=== PATIENT | male | born 1960 | race Caucasian/White ===

== ENCOUNTER 2025-01-22 08:30 | Outpatient (REF) | payer OTHER, SELFPAY ==
--- OUTSIDE RECORDS SUMMARY | 2025-01-22 09:55 | XMS_ITS ---
Author Name [facility] Organization Unknown Care Team Organization Name Specialty Phone Email Start Date End Da te [facility] Maryjane Fragoso Primary Care 02/13/202211/06
[2025-01-22 13:35] LABS: MANUAL DIFF FLAG NO
[2025-01-22 13:47] LABS: Hematocrit 45.5 % (42.0-52.0); Hemoglobin 15.0 g/dl (14.0-18.0); Imm Gran Abs Auto 0.05 X10*3/uL (0.00-0.03); Imm Gran Pct Auto 0.5 % (0.0-0.4); Lymphocytes Absolute Auto 1.5 X10*3/uL (1.2-4.9); Mean Corpuscular HGB Conc 33.0 g/dl (31.0-36.0); Mean Corpuscular Hemoglobin 29.1 pg (27.0-33.0); Mean Corpuscular Volume 88.2 fL (80.0-98.0); NRBC Abs Auto 0.000 X10*3/uL (0.0-0.012); NRBC Pct Auto 0.0 /100WBC (0.0-0.2); Platelet Count 347 X10*3/uL (160-400); Red Blood Count 5.16 X10*6/uL (4.60-5.80); White Blood Count 10.9 X10*3/uL (4.8-10.8)
[2025-01-22 15:01] LABS: Folate 5.5 ng/mL (> or = 4.0); Vitamin B12 359 pg/mL (200-900)
[2025-01-22 16:17] LABS: Alanine Aminotransferase 36 U/L (0-40); Albumin Level 4.5 g/dL (3.5-5.0); Anion Gap 14 (12-20); Aspartate Amino Transferase 22 U/L (5-37); Blood Urea Nitrogen 14 mg/dL (9-16); Calcium 9.3 mg/dL (8.4-10.2); Carbon Dioxide 29 mmol/L (22-29); Chloride 105 mmol/L (96-108); Estimated Glomerular Filt Rate > 60; Potassium 4.4 mmol/L (3.3-5.1); Sodium 144 mmol/L (135-145); Total Protein 7.2 g/dL (6.5-8.0)
[2025-01-22 18:07] LABS: Alkaline Phosphatase 75 U/L (39-117)
[2025-01-28 14:43] LABS: Vitamin D 25-OH, D2 <4 ng/mL; Vitamin D 25-OH, D3 28 ng/mL; Vitamin D 25-OH, Total 28 ng/mL (30-100)
== END 2025-01-22 08:31 | disposition home or self-care (01) ==
LOC: HO.HKASLDS 08:30
PROVIDERS: PCP Internal Medicine; Visit Provider Psychiatry & Neurology Neurology
DX: G25.2 Other specified forms of tremor (principal); M54.2 Cervicalgia; G47.10 Hypersomnia, unspecified; R26.9 Unspecified abnormalities of gait and mobility; R06.83 Snoring; Z13.21 Encounter for screening for nutritional disorder
CPT/HCPCS: 36415; 80053; 82306; 82607; 82746; 84443; 85025; 85652

== ENCOUNTER 2025-01-22 08:30 | Outpatient (AMB) | payer OTHER, SELFPAY ==
--- NOTE | 2025-01-22 08:33 | MHC.OFFVIS ---
Vital Signs 01/22/25 08:36 Height 5 ft 11 in Weight 226 lb 8 oz BMI 31.6 BP 130/82 Blood Pressure Location Rt brachial Position Sitting Pulse 90 Pulse Source Pulse Oximeter Pulse Oximetry (%) 96 Oxygen Delivery Method Room Air Intake Visit Reasons: 09/29LVM+LET ENP - Gait Instability Intake Note: Gait instability ? MS Sister recent diagnosed Apprentice Photographer Required: No Accompanied by: Self / Same As Patient Allergies No Known Allergies Allergy (Verified 01/22/25 08:34) Medication List - Last Reconciled 01/22/25 by Kristin Corbett MD amlodipine 10 mg PO DAILY citalopram 20 mg PO DAILY hydrochlorothiazide 25 mg PO DAILY pravastatin 80 mg PO DAILY HPI Comments Details: 64y/o Right handed male comes for evaluation of tremors and gait instability, falls. His tremors are in his UE and LE - R>L mostly at rest and intermittent. he started noticing it 2 years ago and has worsened since then. he also feels he has problem with fine motor coordination.He also seems slower No change in voice He does not write so unsure of change in handwriting He has some night time drooling He has difficulty using chopsticks which he used to be good He has trouble with dressing - especially pants- worried he will fall.He has constipation. No family h/o parkinsons. No known head injury / No exposure to toxins or heavy metals or antipsychotics.He denies excessive alcohol He reports some word retrieval difficulty Gait- he started noticing frequent stumbling for 2 years with some frequent near falls. he feels like he does not lift his foot up He denies neck pain or back pain No surgeries in the spine No numbness or tingling He has some urinary urgency He snores loudly and has nocturia , frequent arousals and excessive daytime sleepiness. [facility] Medical History Gait instability Abnormal colonoscopy Hyperlipidemia Essential hypertension Depressive disorder Closed displaced fracture of fifth metatarsal bone of right foot Anxiety state Family History Father Prostate cancer Heart attack Diabetes Mother Heart attack Brother Testicular cancer Sister Multiple sclerosis Physical Exam Vital Signs: Last Vital Signs Pulse 90 01/22/25 08:36 BP 130/82 01/22/25 08:36 Pulse Ox 96 01/22/25 08:36 Oxygen Delivery Method Room Air 01/22/25 08:36 BMI result Body Mass Index 31.6 Const General: cooperative, healthy appearing, comfortable and no acute distress Nutritional Appearance: obese Orientation/consciousness: patient oriented x3 Neuro Other: No tremors Normal blink and facial expression Normal tone FFM and foot taps - normal Voice hoarse Patient was hard of hearing General: patient oriented x3, tone normal, moves all extremities and no focal motor deficits Cranial nerves: Yes Facial sensation intact/muscles of mastication intact, Yes Bilaterally intact EOM present, Yes Nystagmus not present, Yes Normal facial strength present, Yes Midline tongue present and Yes Ability to bilaterally elevate shoulders present Cognition (Neuro): normal cognition Gait exam (Neuro): Antalgic gait present Motor exam (neuro): 5/5 motor strength present throughout and Normal motor muscle tone present throughout Deep tendon reflexes (DTR's): Right triceps reflex intensity grade: 1+, Left triceps reflex intensity grade: 1+, Rt Biceps (C5, C6): 1+, Left biceps reflex intensity grade: 1+, Right brachioradialis reflex intensity grade: 1+, Left brachioradialis reflex intensity grade: 1+, Right patellar reflex intensity grade: 1+ and Left patellar reflex intensity grade: 1+ Coordination: [id number] test normal Assessment & Plan Assessment & Plan (1) Coarse tremors: Comment: ? physiological Code(s): G25.2 - Other specified forms of tremor Category: Medical (2) Gait disorder: Comment: Musculoskeletal Code(s): R26.9 - Unspecified abnormalities of gait and mobility Category: Medical (3) Snoring: Code(s): R06.83 - Snoring Category: Medical (4) Hypersomnia: Code(s): G47.10 - Hypersomnia, unspecified Category: Medical Plan No evidence of Parkinson's on todays visit I will evaluate him with MRI brain , C spine XR to r/o spondylosis, labs - Vit B 12 TSH CBC CMP Home sleep test to r/o sleep apnea. Orders: Orders Vitamin B12 and Folate Today G25.2 - Other specified forms of tremor, R26.9 - Unspecified abnormalities of gait and mobility Complete Blood Count Auto Diff Today G25.2 - Other specified forms of tremor, R26.9 - Unspecified abnormalities of gait and mobility Vitamin D 25-OH (D2 and D3) Today G25.2 - Other specified forms of tremor, R26.9 - Unspecified abnormalities of gait and mobility TSH reflex Free T4 Today G25.2 - Other specified forms of tremor, R26.9 - Unspecified abnormalities of gait and mobility MR head/brain wo con Today G25.2 - Other specified forms of tremor, R26.9 - Unspecified abnormalities of gait and mobility Comprehensive Met. Panel Today G25.2 - Other specified forms of tremor, R26.9 - Unspecified abnormalities of gait and mobility Erythrocyte Sedimentation Rate Today G25.2 - Other specified forms of tremor, R26.9 - Unspecified abnormalities of gait and mobility PT Evaluation and Treatment Today R26.9 - Unspecified abnormalities of gait and mobility XR cervical spine 3V Today M54.2 - Cervicalgia RT home sleep study Today G47.10 - Hypersomnia, unspecified, R06.83 - Snoring, R35.1 - Nocturia Coding Level of Care Code New Pt Level 4 (26956) Complex EM visit Add On G2211 Diagnoses Coarse tremors G25.2 Gait disorder R26.9 Snoring R06.83 Hypersomnia G47.10
[2025-01-22 08:36] VITALS: BP 130/82; PULSE 90; O2SAT 96; BMI 31.6
--- OUTSIDE RECORDS SUMMARY | 2025-01-22 08:51 | XMS_ITS | Clinical Summary ---
Author Organization [place] [address] [facility] Building Address [address] [place] [phone] Phone Care Team Providers Care Warehouse Trainer Name Role Phone Nick Vicente MD Primary Care Provider [phone] Allergies No known active allergies Medications pravastatin (PRAVACHOL) 80 mg tablet Take 1 tablet (80 mg total) by mouth 1 (one) time each day. 90 tablet 1 09/29/2024 Active hydroCHLOROthiaz jordan (HYDRODIURIL) 25 mg tablet Take 1 tablet (25 mg total) by mouth 1 (one) time each day. 90 tablet 1 09/29/2024 Active citalopram (CeleXA) 20 mg tablet Take 1 tablet (20 mg total) by mouth 1 (one) time each day. 90 tablet 1 09/29/2024 Active buPROPion XL (WELLBUTRIN XL) 300 mg 24 hr tablet Take 1 tablet (300 mg total) by mouth 1 (one) time each day in the morning. 90 tablet 1 09/29/2024 Active amLODIPine (NORVASC) 10 mg tablet Take 1 tablet (10 mg total) by mouth 1 (one) time each day. 90 tablet 1 09/29/2024 Active Active Problems Problem Noted Date Diagnosed Date Prediabetes 01/22/2017 Essential hypertension 01/11/2015 Depression 03/31/2009 Hearing loss 06/11/2007 Hyperlipidemia 09/13/2005 Obesity 09/13/2005 Immunizations Immunization Administration Dates Next Due Hepatitis A Adult (Havrix; V aqta) 19yo and older 01/30/2007,07/19/2006 Influenza Quadravalent, MDCK , 0.5ml, preservative free (Flucelvax) 6mo and older 04/26/2021 Influenza Quadravalent, MDCK , 0.5ml, with preservative (Flucelvax) 6mo and older 03/19/2018,01/21/2017 Influenza trivalent, 0.5mL, preservative free (Fluarix; FluLaval; Fluzone) ages 6mo and older (Afluria) 3 years and older 02/09/2022,01/11/2015,01/27/2010,01/01,01/30/2007 Meningococcal MCV4P 07/17/2006 PPD Test 07/17/2006 [employer] SARS-CoV-2 COVID-19, mRNA, LNP-S, preservative free 07/11/2021 Td Tetanus diptheria (Tdvax) 7yo and older 09/13/2005 Tdap Tetanus diptheria acell ular pertussis (Boostrix; Adacel) 7yo and older 03/04/2019,09/19/2012 Zoster Live 02/09/2022,07/11/2021 Surgical History Surgery Date Site/Laterality Comments COLONOSCOPY 10/01/14 PROCEDURE: HISTORICAL COLONOSCOPY; COMMENT: Diverticulosis Medical History Medical History Date Comments Closed displaced fracture of fifth metatarsal bone of right foot 07/31/2017 DX:Closed displaced frac ture of fifth metatarsal bone of right foot Anxiety state DX:Anxiety state Depressive disorder DX:Depressiv e disorder Hyperlipidemia DX:Hyperlipidemi a Essential hypertension DX:Essent ial hypertension Family History Medical History Relation Name Comments Other cancer Brother testicular Diabetes Father Heart attack Father Prostate cancer Father Heart attack Mother Relation Name Status Comments Brother Father Mother Social History Tobacco Use Types Packs/Day Years Used Date Smoking Tobacco: Never Smokeless Tobacco: Never Tobacco Cessation:Counseling Given: Not Answered Alcohol Use Standard Drinks/Week Comments Yes 0 (1 standard drink = 0.6 oz pur e alcohol) Housing Instability Answer Date Recorde d Are you worried that in the next 2 months you may not have stable housing? No 09/28/2024 Food Access & Nutrition Answer Date Rec orded Do you have access to a vari ety of food including fruits and vegetables? Yes 09/28/2024 Access to Healthcare Answer Date Record ed Within the last 3 months, ho w many times did you visit the emergency department for your medical care? 0 09/28/2024 Health Literacy Answer Date Recorded How often do you need to hav e someone help you when you read instructions, pamphlets, or other written material from your doctor or pharmacy? Never 09/28/2024 Caregiver: How often do you need to have someone help you when you read instructions, pamphlets, or other written material from your doctor or pharmacy? Not on file 09/28/2024 Financial Risk Answer Date Recorded How hard is it for you to pa y for the very basics like food, housing, medical care, and air conditioning / heating? Not very hard 09/28/2024 Transportation Answer Date Recorded Has the lack of transportati on kept you from meetings, work, or from getting things needed for daily living? No Has the lack of transportati on kept you from medical appointments or from getting medications? No 09/28/2024 Social Isolation Answer Date Recorded How often do you feel lonely or isolated from those around you? Sometimes 09/28/2024 Food Risk Answer Date Recorded Within the past 12 months we worried whether our food would run out before we got money to buy more. Never true 09/28/2024 Within the past 12 months th e food we bought just didn't last and we didn't have money to get more. Never true 09/28/2024 Dependent Care Answer Date Recorded Do you need help finding or paying for care for your loved ones. For example, early childhood education specialist or elderly care for an older adult? No 09/28/2024 Education Answer Date Recorded Do you think completing more education or training, like finishing a GED, going to college, or learning a trade, would be helpful for you? No 09/28/2024 Employment and Income Answer Date Recor ded During the last four weeks, have you been actively looking for work? Yes 09/28/2024 Living Situation Answer Date Recorded What is your living situation? Unrecognized valu e 09/28/2024 Sex and Gender Information Value Date Recorded Sex Assigned at Male 08/12/2024 1:54 PM EDT Legal Sex Male 3:07 AM EST Gender Identity Male 08/12/2024 1:54 PM EDT Sexual Orientation Straight 08/12/2024 1: 54 PM EDT Obstetrics History Last Filed Vital Signs Vital Sign Reading Time Taken Comments Blood Pressure 130/72 09/29/2024 8:14 AM EDT Pulse 84 09/29/2024 8:14 AM EDT Temperature - - Respiratory Rate - - Oxygen Saturation - - Inhaled Oxygen Concentration - - Weight 99.8 kg (220 lb) 09/29/2024 8:14 AM EDT Height 180.3 cm (5' 11 ) 09/29/2024 8:14 AM EDT Body Mass Index 30.68 09/29/2024 8:14 AM EDT Plan of Treatment Health Maintenance Due Date Last Done Comments Colorectal Cancer Screening: Colonoscopy 1960 Pneumococcal Vaccine: 50+ Years (1 of 1 - PCV) 2010 HIV Screening 03/17/2022 Zoster Vaccines (2 of 3) 04/06/2022 02/09/2022, 04/0 08/2021 COVID-19 Vaccine ( season) 2024 07/11/2021, 01/28/2021, 07/26/2020, Additional history exists Influenza Vaccine (#1) 2024 , 04/26/2021, 01/15/2020, Additional history exists Social Influencers of Health Screening 09/28/2025 09/28/2024 Hypertension/CHF/CAD Annual BMP Blood Test 09/29/2025 09/29/2024, 10/09/2023 DTaP,Tdap,and Td Vaccines (4 - Td or Tdap) 03/04/2029 03/04/2019, 09/19/2012, 09/13/2005 Cholesterol Screening (Lipid Panel) 09/29/2029 09/29/2024, 10/09/2023, 10/09/2023 RSV Immunization Adult Patients (1 - 1-dose 75+ series) 10/26/2035 Hepatitis C Screening Completed 07/17/2006 Meningococcal ACWY Vaccine Aged Out 07/17/2006 N o longer eligible based on patient's age to complete this topic Hepatitis A Vaccines Aged Out 01/30/2007, 07/20/19 07 No longer eligible based on patient's age to complete this topic Depression Screening Completed 09/28/2024 HIB Vaccines Aged Out No longer eligi ble based on patient's age to complete this topic HPV Vaccines Aged Out No longer eligi ble based on patient's age to complete this topic Hepatitis B Vaccines Aged Out No long er eligible based on patient's age to complete this topic IPV Vaccines Aged Out No longer eligi ble based on patient's age to complete this topic MMR Vaccines Aged Out No longer eligi ble based on patient's age to complete this topic Meningococcal B Vaccine Aged Out No l onger eligible based on patient's age to complete this topic RSV Immunization Patients Under 20 months Aged Out No longer eligible based on patient's age to complete this topic Varicella Vaccines Aged Out No longer eligible based on patient's age to complete this topic Procedures Procedure Name Priority Date/Time Associated Diagnosis Comments BASIC METABOLIC PANEL Routine 09/29/2024 8:50 AM EDT Pure hypercholesterolemia Essential hypertension LIPID PANEL WITH REFLEX TO DIRECT LDL Routine 09/29/2024 8:50 AM EDT Pure hypercholesterolemia Essential hypertension HEPATITIS C SCREENING Routine 07/17/2006 from Last 3 Months or Most Recently Relevant to Health Maintenance Results * (ABNORMAL) Lipid panel with reflex to direct LDL (09/29/2024 8:50 AM EDT) Cholesterol 225(H) 0 - 200 mg/dL LAB CHEMISTRY METHOD 09/29/2024 12:22 PM EDT [facility] Triglycerides 107 0 - 150 mg/dL LAB CHEMISTRY METHOD 09/29/2024 12:22 PM EDT [facility] HDL 57 >=40 mg/dL LAB CHEMISTRY METHOD 09/29/2024 12:22 PM EDT [facility] LDL Calculated 147(H) 0 - 100 mg/dL LAB CHEMISTRY METHOD 09/29/2024 12:22 PM EDT [facility] VLDL Cholesterol Daniele 21.4 mg/dL LAB CHEMISTRY METHOD 09/29/2024 12:22 PM EDT [facility] Non HDL Chol. (LDL+VLDL) 168(H) <145 mg/dL LAB CHEMISTRY METHOD 09/29/2024 12:22 PM EDT [facility] Chol/HDL Ratio 3.9 0.0 - 4.4 LAB CHEMISTRY METHOD 09/29/2024 12:22 PM EDT [facility] Blood Venous blood specimen / Unknown Venipuncture / Unknown 09/29/2024 8:50 AM EDT 09/29/2024 8:50 AM EDT us Nick Vicente MD LAB BLOOD ORDERABLES Final Res ult [facility] [address] [place] [address], * (ABNORMAL) Basic metabolic panel (09/29/2024 8:50 AM EDT) Sodium 141 133 - 145 mmol/L LAB CHEMISTRY METHOD 09/29/2024 12:[address] [facility] Potassium 4.0 3.5 - 5.5 mmol/L LAB CHEMISTRY METHOD 09/29/2024 12:[address] [facility] Chloride 105 96 - 110 mmol/L LAB CHEMISTRY METHOD 09/29/2024 12:[address] [facility] CO2 31 21 - 32 mmol/L LAB CHEMISTRY METHOD 09/29/2024 12:[address] [facility] Anion Gap 5 3 - 11 LAB CHEMISTRY METHOD 09/29/2024 12:[address] [facility] Glucose 122(H) 70 - 100 mg/dL LAB CHEMISTRY METHOD 09/29/2024 12:[address] [facility] BUN 12 5 - 25 mg/dL LAB CHEMISTRY METHOD 09/29/2024 12:22 PM EDT [facility] Creatinine 0.77 0.70 - 1.30 mg/dL LAB CHEMISTRY METHOD 09/29/2024 12:22 PM EDT [facility] eGFR 101 >=60 mL/min/1. 73m2 LAB CHEMISTRY METHOD 09/29/2024 12:22 PM EDT [facility] Comment:Calculation based on the Chronic Kidney Disease Epidemiology Collaboration (CKD-EPI) equation refit without adjustment for race. BUN/Creatinine Ratio 15.6 LAB CHEMISTRY METHOD 09/29/2024 12:22 PM EDT [facility] Calcium 9.1 8.5 - 10.5 mg/dL LAB CHEMISTRY METHOD 09/29/2024 12:22 PM EDT [facility] Blood Venous blood specimen / Unknown Venipuncture / Unknown 09/29/2024 8:50 AM EDT 09/29/2024 8:50 AM EDT Nick Vicente MD LAB BLOOD ORDERABLES Final Res ult [facility] [address] [place] [address], * Hepatitis C Screening (07/17/2006) Hepatitis C Screening negative Historical Provider HEALTH MAINTENANCE Final Result from Last 3 Months or Most Recently Relevant to Health Maintenance Insurance [facility] [address] [place] [phone] Care Teams Warehouse Trainer Relationship Specialty Start Date End Date Nick Vicente MD [address] [place] [id number] PCP - General Internal Medicine 01/25/20
== END 2025-01-22 09:00 | disposition home or self-care (01) ==
LOC: HO.HSMS 08:31
PROVIDERS: PCP Internal Medicine; Visit Provider Psychiatry & Neurology Neurology
DX: G25.2 Other specified forms of tremor (principal); R26.9 Unspecified abnormalities of gait and mobility; R06.83 Snoring; G47.10 Hypersomnia, unspecified
CPT/HCPCS: 99204; G2211

== ENCOUNTER → 2025-03-22 07:31 | Outpatient (BNV) | payer OTHER, SELFPAY | PROVIDERS: PCP Internal Medicine; Visit Provider Radiology Diagnostic Radiology | DX: I67.82 Cerebral ischemia (principal); G31.9 Degenerative disease of nervous system, unspecified | CPT/HCPCS: 70551 ==

== ENCOUNTER 2025-03-22 07:32 | Outpatient (REF) | payer OTHER, SELFPAY ==
--- OUTSIDE RECORDS SUMMARY | 2025-03-18 23:59 | XMS_ITS | Continuity of Care Document ---
Author Organization [facility] Address [address] [place] [address] [address] [place] [address]- Care Team Providers Care Regrinder Operator Name Role Phone Jules GONZALES, Nick Mattson Primary Care Physician [phone] Encounter [facility] Date(s): 02/16/25 - 03/18/[address] [place] [address]- Attending Physician: Ronan Lopes Admitting Physician: Ronan Lopes Referring Physician: AdmtrRonan Encounter Type: Triage Allergies, Adverse Reactions, Alerts No Known Medication Allergies Medications acetaminophen 325 mg oral tablet 650 mg, By Mouth, Every 4 hours, PRN, Refills 0, Maintenance, Pain , Mild, 01/29/25 4:42:00 PM EDT,Partial fill upon patient request if the prescription is for a schedule II opioid drug. Start Date: 01/29/25 Status: Ordered Medication Dispense Status: Completed Total Allowed Fills: 1 Fills Dispensed: 0 amLODIPine 10 mg oral tablet 1 tablet = 10 mg, By Mouth, Daily, # 30 tablet, 0 Refills, Maintenance, 03/15/25 12:52:00 PM EST, Tablet, Partial fill upon patient request if the prescription is for a schedule II opioid drug. Start Date: 03/15/25 Status: Ordered Medication Dispense Status: Completed Quantity: 30.0 Unit: tablet Total Allowed Fills: 1 Fills Dispensed: 0 aspirin 81 mg oral delayed release tablet 81 mg, By Mouth, Daily, Refills 0, Maintenance, 01/25/25 3:42:00 PM EDT, Partial fill upon patient request if the prescription is for a schedule II opioid drug. Start Date: 01/25/25 Status: Ordered Medication Dispense Status: Completed Total Allowed Fills: 1 Fills Dispensed: 0 citalopram 20 mg oral tablet 20 mg, 1, tablet, By Mouth, Daily, # 30 tablet, Refills 0, Maintenance, 09/06/23 4:45:00 PM EDT, Partial fill upon patient request if the prescription is for a schedule II opioid drug. Start Date: 09/06/23 Status: Ordered Medication Dispense Status: Completed Quantity: 30.0 Unit: tablet Total Allowed Fills: 1 Fills Dispensed: 0 nitroglycerin 0.4 mg sublingual tablet 1 tablet = 0.4 mg, Sublingual, Every 5 minutes, PRN for chest pain, # 100 tablet, 0 Refills, Maintenance, 03/15/25 1:10:00 PM EST, Tablet, [facility]/pharm[facility] #[id number], Partial fill upon patient request if the prescription is for a schedule II opioid drug., 180, cm, 03/15/25 13:08:00 EST, Height, 103.6, kg, 01/25/25 22:11:00 EDT, Dry Weight Start Date: 03/15/25 Status: Ordered Medication Dispense Status: Completed Quantity: 100.0 Unit: tablet Total Allowed Fills: 1 Fills Dispensed: 0 pravastatin 80 mg oral tablet 1 tablet = 80 mg, By Mouth, Daily, # 30 tablet, 0 Refills, Maintenance, 06/28/23 10:57:00 AM EDT, Tablet, Partial fill upon patient request if the prescription is for a schedule II opioid drug. Start Date: 06/28/23 Status: Ordered Medication Dispense Status: Completed Quantity: 30.0 Unit: tablet Total Allowed Fills: 1 Fills Dispensed: 0 Vitamin D3 5000 intl units oral capsule TAKE 1 CAPSULE BY MOUTH EVERY DAY Start Date: 03/15/25 Status: Ordered Medication Dispense Status: Completed Total Allowed Fills: 1 Fills Dispensed: 0 Wellbutrin XL 300 mg/24 hours oral tablet, extended release 1 tablet = 300 mg, By Mouth, Daily, # 30 tablet, 0 Refills, Maintenance, 06/28/23 10:57:00 AM EDT, ER Tablet, Partial fill upon patient request if the prescription is for a schedule II opioid drug. Start Date: 06/28/23 Status: Ordered Medication Dispense Status: Completed Quantity: 30.0 Unit: tablet Total Allowed Fills: 1 Fills Dispensed: 0 Problem List Condition Confirmation Course Effective Dates Status Health St atus Informant Cholecystitis, acute Confirmed Active Social History Social History Type Response Smoking Status Never (less than 100 in lifetime) entered on: 09/06/23 Sex Sex Representation Male (finding) Patient Care team information Care Team Personnel Name: Taylor Bill RN Position: S RN Member Role: Primary Care Nurse Name: Fabby Dalal RN Position: S RN Member Role: Primary Care Nurse Name: Rolanda Horton RN Position: S RN Member Role: Primary Care Nurse Name: Jules GONZALES, Nick Mattson Position: Reference Physician Member Role: PCP Telecom: Name: Dominic Kyle RN Position: S RN Member Role: Primary Care Nurse Care Team Related Persons Name: YUE SANZ Insurance Providers Guarantor name: MARICRUZ SANZ Health Plan Information #: 1 Payer: [facility] H[facility] Payer Identifier: JONO Member Number: [id number] Group Number: [id number] Subscriber Identifier: JONO Relationship to Subscriber: spouse Coverage Type: Commercial Managed Care - HMO Coverage Verification Date: NA Telecom: NA Address: NA
--- NOTE | ~2025-03-22 | MR_ITS ---
EXAMINATION: MR BRAIN WITHOUT CONTRAST CLINICAL INFORMATION: September 2508.07. Other specified forms of tremor COMPARISON: None available. TECHNIQUE: MRI of the brain was obtained using routine sequences without contrast. FINDINGS: No restricted diffusion. No acute intracranial hemorrhage, mass effect, midline shift, hydrocephalus or herniation. Quiros-white matter differentiation is normal. Bilateral multifocal patchy and punctate deep periventricular white matter hyperintense T2 FLAIR signal involving centrum semiovale and dunn radiata. Old lacunar infarcts with the cribriform pattern in the basal ganglia. Posterior cranial fossa contents demonstrated no signal abnormality or mass effect. Normal position of the cerebellar tonsils. Sellar/suprasellar region is normal. Flow-void signal within the main cerebral vessels is normal. Prominence of the extra-axial CSF spaces cerebral sulci and ventricles. MR/MR head/brain wo con IMPRESSION: No acute brain abnormality. Small vessel occlusive disease. Global cerebral atrophy, mild. Electronically signed by: Ramon Nur MD 03/22/2025 09:01 AM ANDREW
--- OUTSIDE RECORDS SUMMARY | 2025-03-22 07:41 | XMS_ITS | Encounter Summary ---
Author Organization [email or web address] Address [address] [place] [address] Care Team Providers Care Fuel Oil Truck Driver Name Role Phone Nick Vicente MD Primary Care Provider [phone] Encounter Details Date Type Department Care Team (Late st Contact Info) Description 02/01/[address] [facility] - Main Lab [address] [place] [phone] Faisal Arreaga MD [address] [place] [address] Heart failure, unspecified (CMS/HCC V24, CMS/HCC V28); Essential (primary) hypertension; Atherosclerotic heart disease of [place] coronary artery without angina pectoris; Non-ST elevation (NSTEMI) myocardial infarction (CMS/HCC V24, CMS/HCC V28); Acute cholecystitis Social History Tobacco Use Types Packs/Day Years Used Date Smoking Tobacco: Never Smokeless Tobacco: Never Alcohol Use Standard Drinks/Week Comments Yes 0 [...] care for your loved ones. For example, child psychometrist or elderly care for an older adult? [...] Orientation Straight 08/12/2024 1: 54 PM EDT documented as of this encounter Plan of Treatment Not on file documented as of this encounter Procedures Procedure Name Priority Date/Time Associated Diagnosis Comments COMPLETE BLOOD COUNT Routine 02/01/2025 5:23 AM EDT Heart failure, unspecified (CMS/HCC V24, CMS/HCC V28) Essential (primary) hypertension Atherosclerotic heart disease of [place] coronary artery without angina pectoris Non-ST elevation (NSTEMI) myocardial infarction (CMS/HCC V24, CMS/HCC V28) Acute cholecystitis COMPREHENSIVE METABOLIC PANEL Routine 02/01/2025 5:23 AM EDT Heart failure, unspecified (CMS/HCC V24, CMS/HCC V28) Essential (primary) hypertension Atherosclerotic heart disease of [place] coronary artery without angina pectoris Non-ST elevation (NSTEMI) myocardial infarction (CMS/HCC V24, CMS/HCC V28) Acute cholecystitis documented in this encounter Results * (ABNORMAL) Comprehensive metabolic panel (02/01/2025 5:23 AM EDT) Sodium 140 133 - 145 mmol/L LAB CHEMISTRY METHOD 02/01/2025 1:27 PM [facility] Potassium 4.5 3.5 - 5.5 mmol/L LAB CHEMISTRY METHOD 02/01/2025 1:27 PM [facility] Chloride 103 96 - 110 mmol/L LAB CHEMISTRY METHOD 02/01/2025 1:27 PM [facility] CO2 32 21 - 32 mmol/L LAB CHEMISTRY METHOD 02/01/2025 1:27 PM [facility] Anion Gap 5 3 - 11 LAB CHEMISTRY METHOD 02/01/2025 1:27 PM [facility] Glucose 97 70 - 100 mg/dL LAB CHEMISTRY METHOD 02/01/2025 1:27 PM [facility] BUN 8 5 - 25 mg/dL LAB CHEMISTRY METHOD 02/01/2025 1:27 PM [facility] Creatinine 0.62(L) 0.70 - 1.30 mg/dL LAB CHEMISTRY METHOD 02/01/2025 1:27 PM [facility] eGFR 107 >=60 mL/min/1. 73m2 LAB CHEMISTRY METHOD 02/01/2025 1:27 PM [facility] Comment:Calculation based on the Chronic Kidney Disease Epidemiology Collaboration (CKD-EPI) equation refit without adjustment for race. BUN/Creatinine Ratio 12.9 LAB CHEMISTRY METHOD 02/01/2025 1:27 PM [facility] Calcium 8.0(L) 8.5 - 10.5 mg/dL LAB CHEMISTRY METHOD 02/01/2025 1:27 PM [facility] AST (SGOT) 42 10 - 42 unit/L LAB CHEMISTRY METHOD 02/01/2025 1:27 PM [facility] ALT (SGPT) 121(H) 10 - 60 unit/L LAB CHEMISTRY METHOD 02/01/2025 1:27 PM [facility] Alkaline Phosphatase 215(H) 42 - 121 unit/L LAB CHEMISTRY METHOD 02/01/2025 1:27 PM [facility] Total Protein 5.0(L) 6.0 - 8.0 g/dL LAB CHEMISTRY METHOD 02/01/2025 1:27 PM [facility] Albumin 2.4(L) 3.2 - 5.0 g/dL LAB CHEMISTRY METHOD 02/01/2025 1:27 PM [facility] Total Bilirubin 0.4 0.0 - 1.4 mg/dL LAB CHEMISTRY METHOD 02/01/2025 1:27 PM [facility] Blood Venous blood specimen / Unknown Venipuncture / Unknown 02/01/2025 5:23 AM EDT 02/01/2025 10:22 AM EDT Faisal Arreaga MD LAB BLOOD ORDERABLES Final Resul t [facility] [address] [place] [address], * (ABNORMAL) Complete blood count (02/01/2025 5:23 AM EDT) WBC 12.1(H) 4.8 - 10.8 K/mcL LAB HEMETOLOGY METHOD 02/01/2025 11:05 AM EDT [facility] RBC 3.10(L) 4.50 - 5.50 M/mcL LAB HEMETOLOGY METHOD 02/01/2025 11:05 AM EDT [facility] Hemoglobin 8.9(L) 13.5 - 17.5 g/dL LAB HEMETOLOGY METHOD 02/01/2025 11:05 AM [facility] Hematocrit 29.0(L) 42.0 - 54.0 % LAB HEM[facility]OLOGY [facility] MCV 94.5 79.0 - 98.0 FL LAB HEMETOLOGY METHOD 02/01/2025 11:05 AM [facility] MCH 29.0 27.0 - 32.0 pcg LAB HEMETOLOGY METHOD 02/01/2025 11:05 AM [facility] MCHC 30.7(L) 32.0 - 37.0 g/dL LAB HEMETOLOGY METHOD 02/01/2025 11:05 AM [facility] RDW 15.6(H) 11.0 - 15.0 % LAB HEMETOLOGY METHOD 02/01/2025 11:05 AM [facility] Platelets 542(H) 130 - 400 K/mcL LAB HEMETOLOGY METHOD 02/01/2025 11:05 AM [facility] MPV 8.9 7.0 - 11.0 FL LAB HEMETOLOGY METHOD 02/01/2025 11:05 AM EDT [facility] NRBC 0.0 <1.0 % LAB HEMETOLOGY METHOD 02/01/2025 11:05 AM EDT [facility] NRBC Absolute 0.00 <0.10 K/mcL LAB HEMETOLOGY METHOD 02/01/2025 11:05 AM EDT [facility] Blood Venous blood specimen / Unknown Venipuncture / Unknown 02/01/2025 5:23 AM EDT 02/01/2025 10:22 AM EDT Faisal Arreaga MD LAB BLOOD ORDERABLES Final Resul t [facility] [address] [place] [address], documented in this encounter Visit Diagnoses Diagnosis Heart failure, unspecified (CMS/[facility] V24, [facility] V28) Heart failure, unspecified Essential (primary) hypertension Unspecified essential hypertension Atherosclerotic heart disease of [place] coronary artery without angina pectoris Non-ST elevation (NSTEMI) myocardial infarction (CMS/[facility] V24, CMS/[facility] V28) Acute cholecystitis documented in this encounter Additional Health Concerns Assessment Noted Time PHQ-9 Depression Total Score: 6 09/29/19 25 3:32 PM EDT documented as of this encounter Care Teams Fuel Oil Truck Driver Relationship Specialty Start Date End Date Nick Vicente MD [address] [place] [id number] PCP - General Internal Medicine 01/25/20 documented as of this encounter
--- OUTSIDE RECORDS SUMMARY | 2025-03-22 07:41 | XMS_ITS | Encounter Summary ---
Author Organization [employer] Address [address] [place] [address] Care Team Providers Care Veterinary Bacteriologist Name Role Phone Nick Vicente MD Primary Care Provider [phone] Encounter Details Date Type Department Care Team (Late st Contact Info) Description 02/03/2025 Lab Requisition [facility] - Main Lab [address] [place] [address] Faisal Arreaga MD [address] [place] [address] Heart failure, unspecified (CMS/HCC V24, CMS/HCC V28); Essential (primary) hypertension; Atherosclerotic heart disease of [place] coronary artery without angina pectoris; Non-ST elevation [...] your loved ones. For example, early childhood associate or elderly care for an older adult? [...] on file documented as of this encounter Visit Diagnoses Diagnosis Heart failure, unspecified ([facility] V24, [facility] V28) Heart failure, unspecified Essential (primary) hypertension Unspecified essential hypertension Atherosclerotic heart disease of [place] coronary artery without angina pectoris Non-ST elevation (NSTEMI) myocardial infarction ([facility] V24, [facility] V28) Acute cholecystitis documented in this encounter Additional Health Concerns Assessment Noted Time PHQ-9 Depression Total Score: 6 09/29/19 25 3:32 PM EDT documented as of this encounter Care Teams Veterinary Bacteriologist Relationship Specialty Start Date End Date Nick Vicente MD [address] [place] [phone] PCP - General Internal Medicine 01/25/20 documented as of this encounter
--- OUTSIDE RECORDS SUMMARY | 2025-03-22 07:41 | XMS_ITS | Clinical Summary ---
Author Organization [place] [address] Yamile barone Formerly [facility] Building Address [address] [place] [phone] Phone Care Team Providers Care Food Selector Name Role Phone Nick Vicente MD Primary Care Provider [phone] Allergies No known active allergies Medications amLODIPine (NORVASC) 10 mg tablet Take 1 tablet (10 mg total) by mouth 1 (one) time each day. 10 tablet 5 Active buPROPion XL (WELLBUTRIN XL) 300 mg 24 hr tablet Take 1 tablet (300 mg total) by mouth 1 (one) time each day in the morning. 10 tablet 5 Active citalopram (CeleXA) 20 mg tablet Take 1 tablet (20 mg total) by mouth 1 (one) time each day. 10 tablet 5 Active pravastatin (PRAVACHOL) 80 mg tablet Take 1 tablet (80 mg total) by mouth 1 (one) time each day. 10 tablet 5 Active pravastatin (PRAVACHOL) 80 mg tablet Take 1 tablet (80 mg total) by mouth 1 (one) time each day. 90 tablet 1 5 02/23/20 25 Discontinu ed(Reorder ) citalopram (CeleXA) 20 mg tablet Take 1 tablet (20 mg total) by mouth 1 (one) time each day. 90 tablet 1 5 02/23/20 Discontinu ed(Reorder ) buPROPion XL (WELLBUTRIN XL) 300 mg 24 hr tablet Take 1 tablet (300 mg total) by mouth 1 (one) time each day in the morning. 90 tablet 1 5 02/23/20 Discontinu ed(Reorder ) amLODIPine (NORVASC) 10 mg tablet Take 1 tablet (10 mg total) by mouth 1 (one) time each day. 90 tablet 1 5 02/23/20 Discontinu ed(Reorder ) Active Problems Problem Noted Date Diagnosed Date Prediabetes 01/22/2017 Essential hypertension 01/11/2015 Depression 03/31/2009 Hearing loss 06/11/2007 Hyperlipidemia 09/13/2005 Obesity 09/13/2005 Encounters Date Type Department Care Team Description 02/17/2025 10:30 AM EST Office Visit Internal Medicine - [address] [phone] Nick Vicente MD Paroxysmal atrial fibrillation (CMS/HCC V24, CMS/HCC V28) (Primary Dx) 02/05/2025 Telephone Internal Medicine - [address] [phone] Nick Vicente MD 02/03/[address] [facility] [address] [place] [address] Faisal Arreaga MD Heart failure, unspecified (CMS/HCC V24, CMS/HCC V28); Essential (primary) hypertension; Atherosclerotic heart disease of [place] coronary artery without angina pectoris; Non-ST elevation (NSTEMI) myocardial infarction (CMS/HCC V24, CMS/HCC V28); Acute cholecystitis 02/01/2025 Telephone Internal Medicine - [address] [phone] Nick Vicente MD 02/01/[address] [facility] [address] [place] [address] Faisal Arreaga MD Heart failure, unspecified ([facility] V24, [facility] V28); Essential (primary) hypertension; Atherosclerotic heart disease of [place] coronary artery without angina pectoris; Non-ST elevation (NSTEMI) myocardial infarction ([facility] V24, [facility] V28); Acute cholecystitis from Last 3 Months Immunizations Immunization Administration Dates Next Due Hepatitis [...] 02/09/2022,01/11/2015,01/27/2010,01/01,01/30/2007 Meningococcal MCV4P 07/17/2006 PPD Test 07/17/2006 [employer] SARS-CoV-2 COVID-19, mRNA, LNP-S, preservative free 07/11/2021 [...] for your loved ones. For example, child care counselor or elderly care for an older adult? [...] Orientation Straight 08/12/2024 1: 54 PM EDT Last Filed Vital Signs Vital Sign Reading Time Taken Comments Blood Pressure 94/56 02/17/2025 10:26 AM EST Pulse 70 02/17/2025 10:26 AM EST Temperature - - Respiratory Rate - - Oxygen Saturation - - Inhaled Oxygen Concentration - - Weight 95.7 kg (211 lb) 02/17/2025 10:26 AM EST Height 180.3 cm (5' 11 ) 02/17/2025 10:26 AM EST Body Mass Index 29.43 02/17/2025 10:26 AM EST Plan of Treatment Health Maintenance Due Date [...] 09/28/2025 09/28/2024 Hypertension/CHF/CAD Annual BMP Blood Test 02/01/2026 02/01/2025, 09/29/2024, 10/09/2023 DTaP,Tdap,and Td Vaccines (4 - [...] to complete this topic Depression Screening Completed 02/17/2025 HIB Vaccines Aged Out No longer eligi [...] Procedure Name Priority Date/Time Associated Diagnosis Comments COMPREHENSIVE METABOLIC PANEL Routine 02/01/2025 5:23 AM EDT Heart failure, unspecified (CMS/HCC V24, CMS/HCC V28) Essential (primary) hypertension Atherosclerotic heart disease of [place] coronary artery without angina pectoris Non-ST elevation (NSTEMI) myocardial infarction (CMS/HCC V24, CMS/HCC V28) Acute cholecystitis COMPLETE BLOOD COUNT Routine 02/01/2025 5:23 AM EDT Heart failure, unspecified (CMS/HCC V24, CMS/HCC V28) Essential (primary) hypertension Atherosclerotic heart disease of [place] coronary artery without angina pectoris Non-ST elevation (NSTEMI) myocardial infarction (CMS/HCC V24, CMS/HCC V28) Acute cholecystitis EXTERNAL CLINICAL LAB 01/29/2025 EXTERNAL CLINICAL LAB 01/25/2025 LIPID PANEL WITH REFLEX TO DIRECT LDL Routine 09/29/2024 8:50 AM EDT Pure hypercholesterolemia Essential hypertension HEPATITIS C SCREENING Routine 07/17/2006 from Last 3 Months or Most Recently Relevant to Health Maintenance Results * (ABNORMAL) Complete blood count (02/01/2025 5:23 AM EDT) [facility] WBC 12.1(H) 4.8 - 10.8 K/mcL LAB HEMETOLOGY METHOD 02/01/2025 11:05 AM [facility] RBC 3.10(L) 4.50 - 5.50 M/mcL LAB HEMETOLOGY METHOD 02/01/2025 11:05 AM [facility] Hemoglobin 8.9(L) 13.5 - 17.5 g/dL LAB HEMETOLOGY METHOD 02/01/2025 11:05 AM [facility] Hematocrit 29.0(L) 42.0 - 54.0 % LAB HEMETOLOGY METHOD 02/01/2025 11:05 AM [facility] MCV 94.5 79.0 - 98.0 FL LAB HEMETOLOGY METHOD 02/01/2025 11:05 AM [facility] MCH 29.0 27.0 - 32.0 pcg LAB HEMETOLOGY METHOD 02/01/2025 11:05 AM [facility] MCHC 30.7(L) 32.0 - 37.0 g/dL LAB HEMETOLOGY METHOD 02/01/2025 11:05 AM [facility] RDW 15.6(H) 11.0 - 15.0 % LAB HEMETOLOGY METHOD 02/01/2025 11:05 AM [facility] Platelets 542(H) 130 - 400 K/mcL LAB HEMETOLOGY METHOD 02/01/2025 11:05 AM [facility] MPV 8.9 7.0 - 11.0 FL LAB HEMETOLOGY METHOD 02/01/2025 11:05 AM EDT [facility] NRBC 0.0 <1.0 % LAB HEMETOLOGY METHOD 02/01/2025 11:05 AM EDT [facility] NRBC Absolute 0.00 <0.10 K/mcL LAB HEMETOLOGY METHOD 02/01/2025 11:05 AM EDT [facility] Blood Venous blood specimen / Unknown Venipuncture / Unknown 02/01/2025 5:23 AM EDT 02/01/2025 10:22 AM EDT us Faisal Arreaga MD LAB BLOOD ORDERABLES Final Resul t [facility] [address] [place] [address], [place] [phone] * (ABNORMAL) Comprehensive metabolic panel (02/01/2025 5:23 AM EDT) Sodium 140 133 - 145 mmol/L LAB CHEMISTRY METHOD 02/01/2025 1:27 PM [facility] Potassium 4.5 3.5 - 5.5 mmol/L LAB CHEMISTRY METHOD 02/01/2025 1:27 PM [facility] Chloride 103 96 - 110 mmol/L LAB CHEMISTRY METHOD 02/01/2025 1:27 PM [facility] CO2 32 21 - 32 mmol/L LAB CHEMISTRY METHOD 02/01/2025 1:27 PM [facility] Anion Gap 5 3 - 11 LAB CHEMISTRY METHOD 02/01/2025 1:27 PM [facility] Glucose 97 70 - 100 mg/dL LAB CHEMISTRY METHOD 02/01/2025 1:27 PM [facility] BUN 8 5 - 25 mg/dL LAB CHEMISTRY METHOD 02/01/2025 1:27 PM [facility] Creatinine 0.62(L) 0.70 - 1.30 mg/dL LAB CHEMISTRY METHOD 02/01/2025 1:27 PM [facility] eGFR 107 >=60 mL/min/1. 73m2 LAB CHEMISTRY METHOD 02/01/2025 1:27 PM [facility] Comment:Calculation based on the Chronic Kidney Disease Epidemiology Collaboration (CKD-EPI) equation refit without adjustment for race. BUN/Creatinine Ratio 12.9 LAB CHEMISTRY METHOD 02/01/2025 1:27 PM [facility] Calcium 8.0(L) 8.5 - 10.5 mg/dL LAB CHEMISTRY METHOD 02/01/2025 1:27 PM [facility] AST (SGOT) 42 10 - 42 unit/L LAB CHEMISTRY METHOD 02/01/2025 1:27 PM [facility] ALT (SGPT) 121(H) 10 - 60 unit/L LAB CHEMISTRY METHOD 02/01/2025 1:27 PM [facility] Alkaline Phosphatase 215(H) 42 - 121 unit/L LAB CHEMISTRY METHOD 02/01/2025 1:27 PM [facility] Total Protein 5.0(L) 6.0 - 8.0 g/dL LAB CHEMISTRY METHOD 02/01/2025 1:27 PM [facility] Albumin 2.4(L) 3.2 - 5.0 g/dL LAB CHEMISTRY METHOD 02/01/2025 1:27 PM [facility] Total Bilirubin 0.4 0.0 - 1.4 mg/dL LAB CHEMISTRY METHOD 02/01/2025 1:27 PM [facility] Blood Venous blood specimen / Unknown Venipuncture / Unknown 02/01/2025 5:23 AM EDT 02/01/2025 10:22 AM EDT us Faisal Arreaga MD LAB BLOOD ORDERABLES Final Resul t [facility] [address] [place] [address], [place] [phone] * External clinical lab (01/29/2025) Only the most recent of2 resultswithin the time period is included. us Provider [facility] LAB BLOOD ORDERABLES Fin al Result * (ABNORMAL) Lipid panel with reflex to direct LDL (09/29/2024 8:50 AM EDT) Cholesterol 225(H) 0 - 200 mg/dL LAB CHEMISTRY METHOD 09/29/2024 12:22 PM EDT [facility] Triglycerides 107 0 - 150 mg/dL LAB CHEMISTRY METHOD 09/29/2024 12:22 PM EDT [facility] HDL 57 >=40 mg/dL LAB CHEMISTRY METHOD 09/29/2024 12:22 PM EDT [facility] LDL Calculated 147(H) 0 - 100 mg/dL LAB CHEMISTRY METHOD 09/29/2024 12:22 PM EDT [facility] VLDL Cholesterol Daniele 21.4 mg/dL LAB CHEMISTRY METHOD 09/29/2024 12:22 PM EDT [facility] Non HDL Chol. (LDL+VLDL) 168(H) <145 mg/dL LAB CHEMISTRY METHOD 09/29/2024 12:22 PM EDT [facility] Chol/HDL Ratio 3.9 0.0 - 4.4 LAB CHEMISTRY METHOD 09/29/2024 12:22 PM EDT [facility] Blood Venous blood specimen / Unknown Venipuncture / Unknown 09/29/2024 8:50 AM EDT 09/29/2024 8:50 AM EDT Nick Vicente MD LAB BLOOD ORDERABLES Final Res ult [facility] [address] [place] [address], [place] [phone] * Hepatitis C Screening (07/17/2006) Hepatitis C Screening negative Historical Provider HEALTH MAINTENANCE Final Result from Last 3 Months or Most Recently Relevant to Health Maintenance [place] [id number] [facility] Care Teams Food Selector Relationship Specialty Start Date End Date Nick Vicente MD [address] [place] [phone] PCP - General Internal Medicine 01/25/20
== END 2025-03-22 07:33 | disposition home or self-care (01) ==
LOC: HO.MRI 07:32
PROVIDERS: PCP Internal Medicine; Visit Provider Psychiatry & Neurology Neurology
DX: G25.2 Other specified forms of tremor (principal); R26.9 Unspecified abnormalities of gait and mobility
CPT/HCPCS: 70551